=== PATIENT | male | born 1935 | race Caucasian/White ===

== ENCOUNTER 2024-08-18 18:20 | Inpatient (IN) ==
[2024-08-18 18:55] LABS: Hematocrit (blood only) 40.9 % (42.0-52.0); Hemoglobin 14.2 g/dl (14.0-18.0); Immature Granulocytes # (auto) 0.04 K/uL (0.01-0.20); Immature Granulocytes % (auto) 0.4 %; Mean Corpuscular Hemoglobin 29.3 pg (25.0-34.0); Mean Corpuscular Volume 84.5 fL (80.0-100.0); Platelet Count 381 K/uL (130-400); RDW Standard Deviation 41.4 fL (36.4-46.3); Red Blood Count 4.84 M/uL (4.70-6.10); White Blood Count 8.97 K/ul (4.8-10.8)
--- NOTE | 2024-08-18 19:02 | Emergency Department Note ---
Impression & Plan [facility] (acute kidney injury), Acute urinary retention, Acute confusion ED Provider Note HISTORY OF PRESENT ILLNESS: Patient is an 88-year-old male presenting with generalized weakness, abdominal pain and confusion. Son at bedside helps provide history. Reports that the patient lives at home with his son. Son at bedside reports that his brother who the patient lives with. Patient normally is quite active and last week was riding his lawnmower and doing his ADLs by himself. Son at bedside reports that this week the patient has been very tired and rundown and has been laying in bed most of the day. Reports he has had significant decreased oral intake. Reports that they have been having difficulties trying to coax the patient out of bed and to come down and eat anything. Reports that the patient called him today saying that he felt like he needed to go to the hospital. Patient reports he feels like he has to void but is unable to. He is complaining of pain in his right lower quadrant. No reported fevers. Son reports the patient seems more confused than normal. ROS: as above PHYSICAL EXAM: Constitutional: Patient appears in no acute distress. HENT: Head: Normocephalic and atraumatic. Eyes: EOMI, PERRL Mouth/Throat: Mucous membranes moist. Neck: Trachea midline. Neck supple. Cardiovascular: RRR, No murmurs, rubs or gallops. Intact distal pulses. Pulmonary/Chest: No respiratory distress. Breath sounds clear and equal bilaterally. No wheezes or rales. Abdominal: Abdomen soft, no rebound or guarding. RLQ TTP. Dome of bladder palpated above umbilicus Musculoskeletal: No edema, tenderness or deformity noted. Skin: Warm and dry. No rash, erythema, pallor or cyanosis Neurological: Alert to person and place, but confused on the month. CN II-XII grossly intact, moving all extremities equally and fully. MDM: - Vitals signs showed hypertension - History obtained via patient and patient's son at bedside. History as above. - Chronic conditions affecting care: HLD; HTN; DM-2 - Differential diagnoses include, but are not limited to: CVA; intracranial hemorrhage; ACS; electrolyte abnormality; dehydration; dysrhythmia; appendicitis; bowel obstruction - Order placed for continuous cardiac monitoring. At this time, monitor showed rate of 74 bpm with normal sinus rhythm, per my interpretation. - External medical records reviewed. Wellness visit note dated 12/06/2022 was reviewed. Patient was seen for his annual wellness examination. - Patient bladder scanned on arrival by nursing staff and had over 800 cc in his bladder. A straight cath was performed - EKG image interpreted by myself showed normal sinus rhythm. Rate 71 bpm. QT 384. No acute ischemic changes. - Laboratory workup interpreted by myself showed normal WBC; slight hyponatremia (Na 133); [facility] (Cr 1.50); hyperglycemia glucose (191) with normal anion gap); normal CK; normal lipase; normal lactate - UA negative for infection - CXR image reviewed by myself negative for pneumonia, per my interpretation - CT head wo contrast negative for acute pathology - CT abdomen/pelvis with IV contrast showed large heterogeneous enhancing prostate concerning for prostatitis. Also noted to have wall thickening and subtle inflammatory changes around the anus concerning for proctitis. Noted to incidentally have a 1.6 cm hypodensity in the pancreatic tail which it is recommended to get an MRI of the abdomen for further workup. - Patient continually getting up to tried to use the restroom but is unable to void. This is likely secondary to his prostatitis and BPH. A Doss catheter was inserted after he was bladder scanned for over 300 cc of urine. After insertion of the Doss catheter, he had over 800 cc out. - Patient given 1L NS in ER. - Discussion was had with caseworker protective services about patient's case and need for admission - Hospitalist. Dr. Lopez, consulted for admission at 21:50. - [facility] ASSESSMENT AND PLAN: Diagnosis: [facility]; acute confusion; acute urinary retention Plan: admit Past Med/Surg History Problem List (Updated 08/18/24 @ 21:51 by Rupa Kay MD) Acute confusion (Acute) Acute urinary retention (Acute) [facility] (acute kidney injury) (Acute) COPE (chronic obstructive pulmonary emphysema) Elevated prostate specific antigen (PSA) (Chronic) Hypercholesterolemia (Chronic) Benign hypertension (Chronic) Type 2 diabetes mellitus (Chronic) Medical History History of basal cell carcinoma (BCC) Surgical History History of cataract surgery History of hemorrhoidectomy Status post Mohs surgery Family History Father Myocardial infarction COPD (chronic obstructive pulmonary disease) CHF (congestive heart failure) Mother Alzheimer disease Denies family history of Ovarian cancer Prostate cancer Breast cancer Colorectal cancer Social History Smoking Status: Never smoker Age Started Using Tobacco: 22; Age Quit Using Tobacco: 46; Cigarettes Per Day: A COUPLE PER DAY; Do You Dip or Chew Tobacco: No; Hx Alcohol Use: No Hx Substance Use: No Preferred Language: Khmer Communication Ability: Effective Visual Impairment: No Limitations Hearing Ability: Normal Industrial 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 Required: No marital status: Current Living Situation: Spouse current occupational status: employed 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 How many Children do You have: 2 Feels Safe at Home: Yes Childhood Exposure to Second-Hand Smoke: No Diet: regular caffeine: Yes during the past year weight has: remained stable Dental Care, Regularly: Yes Physical Activity Frequency: Daily Seatbelt Use: always Sunscreen Use: Yes Do you think of yourself as: straight/heterosexual Assistive Devices: Glasses Allergies Allergies Allergy/AdvReac Type Severity Reaction Status Date / Time spironolactone Allergy Unknown HIVES Verified 08/18/24 20:48 Home Meds Previous Rx's Medication Instructions Recorded albuterol sulfate 90 mcg/actuation See Rx Instructions inhalation 07/24/22 aerosol inhaler (Ventolin HFA) .COMPLEX PRN shortness of breath or wheezing #8.5 grams acebutolol 200 mg capsule 200 mg PO BID #180 caps 05/27/24 losartan 50 mg tablet 50 mg PO DAILY #90 tabs 05/27/24 Results & Data (ED) Vital Signs Vital Signs - 24 hr 08/18/24 18:25 08/18/24 18:32 08/18/24 18:52 Temperature 36.8 C Temperature Source Oral Pulse Rate 88 74 Pulse Rhythm Regular Pulse Strength Normal Respiratory Rate 18 Respiratory Effort / Characteristics Non-Labored Spontaneous Respiratory Depth Normal Respiratory Pattern Regular Blood Pressure 156/115 H Blood Pressure Mean 128 Blood Pressure Position Sitting Pulse Oximetry 98 98 Oxygen Delivery Method Room Air Room Air Sepsis Recent Fever Within 48 Hours No Sepsis New/Unexplained Change in Mental Status No Sepsis Action Taken by Nursing No Action Required 08/18/24 20:50 Temperature Temperature Source Pulse Rate 73 Pulse Rhythm Pulse Strength Respiratory Rate 20 Respiratory Effort / Characteristics Respiratory Depth Respiratory Pattern Blood Pressure 146/107 H Blood Pressure Mean 114 Blood Pressure Position Pulse Oximetry 96 Oxygen Delivery Method Sepsis Recent Fever Within 48 Hours Sepsis New/Unexplained Change in Mental Status Sepsis Action Taken by Nursing Laboratory Data 08/18/24 18:37 08/18/24 18:37 Lab Results 08/18/24 08/18/24 Range/Units 18:37 19:00 WBC 8.97 (4.8-10.8) K/ul RBC 4.84 (4.70-6.10) M/uL Hgb 14.2 (14.0-18.0) g/dl Hct 40.9 L (42.0-52.0) % MCV 84.5 (80.0-100.0) fL MCH 29.3 (25.0-34.0) pg MCHC 34.7 (32.0-36.0) g/dL RDW Std Deviation 41.4 (36.4-46.3) fL RDW Coeff of Rosalba 13.4 (11.5-14.5) % Plt Count 381 (130-400) K/uL MPV 9.8 (9.4-12.4) fL Immature Gran % (Auto) 0.4 % Neut % (Auto) 69.0 % Lymph % (Auto) 22.3 % [place] % (Auto) 7.9 % Eos % (Auto) 0.2 % Baso % (Auto) 0.2 % Neut # (Auto) 6.18 (1.40-6.50) K/uL Lymph # (Auto) 2.00 (1.20-3.40) K/uL [place] # (Auto) 0.71 H (0.11-0.59) K/uL Eos # (Auto) 0.02 (0.00-0.50) K/uL Baso # (Auto) 0.02 (0.00-0.20) K/uL Immature Gran # (Auto) 0.04 (0.01-0.20) K/uL Sodium 133 L (136-145) mmol/L Potassium 4.7 (3.5-5.1) mmol/L Chloride 100 (98-107) mmol/L Carbon Dioxide 25 (21-32) mmol/L Anion Gap 8 (3-11) BUN 21 (6-23) mg/dl Creatinine 1.50 H (0.6-1.4) mg/dl Est Cr Clr Drug Dosing 35.8 ml/min eGFR 44.78 BUN/Creatinine Ratio 14.0 (10-20) Glucose 191 H (70-99(Fasting)) mg/dl Lactate 1.4 (0.4-2.0) mmol/L Calcium 10.0 (8.6-10.3) mg/dl Total Bilirubin 0.8 (0.2-1.0) mg/dl AST 25 (13-39) U/L ALT 35 (7-52) U/L Alkaline Phosphatase 106 H (34-104) U/L Total Creatine Kinase 32 (30-223) U/L Total Protein 7.3 (6.0-8.3) gm/dl Albumin 3.3 L (3.4-5.0) gm/dl Globulin 4.0 (2.5-4.0) gm/dl Albumin/Globulin Ratio 0.8 L (0.9-2) Lipase 65 (11-82) U/L Urine Color Yellow Urine Appearance Clear (Clear) Urine pH 6.5 (4.5-7.5) Ur Specific [place] 1.010 (1.000-1.030) Urine Protein Negative (Negative) Urine Glucose (UA) Negative (Negative) Urine Ketones Negative (Negative) Urine Blood Negative (Negative) Urine Nitrite Negative (Negative) Urine Bilirubin Negative (Negative) Urine Urobilinogen Negative (Negative) Ur Leukocyte Esterase Negative (Negative) Urine Comment Administered Medications Discontinued Medications Sodium Chloride (Nss) 1,000 mls @ 999 mls/hr IV .Q1H1M ONE Stop: 08/18/24 20:15 Last Infusion: 08/18/24 20:36 Dose: Infused Documented By: Admin: 08/18/24 19:35 Dose: 999 mls/hr Documented By: BALJIT Ioversol (Optiray 320 100ml) 93 ml IV ONCE ONE Stop: 08/18/24 19:50 Last Admin: 08/18/24 19:50 Dose: 93 ml Documented By: GES Imaging Data Radiologist's Impression: Abdomen/Pelvis CT 08/18/24 18:50 Exam(s): CT ABDOMEN + PELVIS With Contrast EXAM: CT Abdomen and Pelvis With Intravenous Contrast CLINICAL HISTORY: Reason for exam: RLQ abd pain; confusion. TECHNIQUE: Axial computed tomography images of the abdomen and pelvis with intravenous contrast. CTDI is 17.84 mGy and DLP is 950.89 mGy-cm. Automated exposure control was utilized for the study. A dose lowering technique was utilized adhering to the principles of ALARA. CONTRAST: Contrast must be dictated COMPARISON: No relevant prior studies available. FINDINGS: Lung bases: Unremarkable. No mass. No consolidation. ABDOMEN: Liver: Hepatomegaly. No mass. Gallbladder and bile ducts: calcification about the gallbladder wall. No ductal dilation. Pancreas: 1.6 cm cyst within the pancreatic tail. No ductal dilation. Spleen: Unremarkable. No splenomegaly. Adrenals: Unremarkable. No mass. Kidneys and ureters: Nonobstructing left intrarenal calculus. 0.8 cm left renal hypodensity likely representing a cyst. Stomach and bowel: Subtle hyperemia and wall thickening involving the duodenum. Wall thickening and inflammatory change about the anus. No obstruction. PELVIS: Appendix: Normal-appearing appendix. Bladder: Moderately distended urinary bladder. Reproductive: The prostate is markedly enlarged and demonstrates heterogeneous enhancement. ABDOMEN and PELVIS: Intraperitoneal space: Unremarkable. No free air. No significant fluid collection. Bones/joints: No acute fracture. No dislocation. Multilevel degenerative changes of the lower thoracic and lumbar spine Soft tissues: Unremarkable. Vasculature: Unremarkable. No abdominal aortic aneurysm. Lymph nodes: Unremarkable. No enlarged lymph nodes. IMPRESSION: Enlarged heterogeneously enhancing prostate. Findings may represent prostatitis Wall thickening and subtle inflammatory changes about the anus may represent proctitis in the appropriate clinical setting Hyperemia and inflammatory changes about the duodenum may represent enteritis 1.6 cm hypodensity within the pancreatic tail. While this may represent a cyst, nonemergent MRI of the abdomen; pancreatic mass protocol recommended for further evaluation. Hepatomegaly Electronically signed by: Edgar Triana MD 08/18/24 20:[address] 08/18/24 18:50 Exam(s): CT HEAD Without Contrast EXAM: CT Head Without Intravenous Contrast CLINICAL HISTORY: Reason for exam: confusion. TECHNIQUE: Axial computed tomography images of the head/brain without intravenous contrast. CTDI is 35.37 mGy and DLP is 624.41 mGy-cm. Automated exposure control was utilized for the study. A dose lowering technique was utilized adhering to the principles of ALARA. COMPARISON: No relevant prior studies available. FINDINGS: Brain: Moderate ischemic microangiopathy. Age-appropriate cerebral volume loss. No hemorrhage. Ventricles: Unremarkable. No ventriculomegaly. Bones/joints: Unremarkable. No acute fracture. Soft tissues: Unremarkable. Sinuses: Right maxillary sinus inflammatory change. Mastoid air cells: Unremarkable as visualized. No mastoid effusion. IMPRESSION: No acute findings in the head/brain. Electronically signed by: Edgar Triana MD 08/18/24 20:48 PM Chest X-Ray 08/18/24 18:53 Chest radiograph, one view History: Confusion Comparison: None Findings: Single AP view of the chest performed. No focal consolidation or pleural effusion. No pneumothorax. The cardiomediastinal silhouette is within normal limits. Normal pulmonary vascularity. No evidence for lymphadenopathy. No visualized bony or soft tissue abnormality. Impression: Normal chest radiograph Electronically signed by Ayden Malagon 08-18-2024 7:50 PM Discharge Plan Visit Data Chief Complaint: Abdominal Pain ED Provider: Rupa Kay Discharge Problem: [facility] (acute kidney injury), Acute urinary retention, Acute confusion Condition: Fair Forms Stand Alone Forms: [employer] Prescriptions Prescriptions: No Action albuterol sulfate [Ventolin HFA] 90 mcg/actuation HFA aerosol inhaler See Rx Instructions inhalation .COMPLEX PRN (Reason: shortness of breath or wheezing) Qty: 8.5 0RF Rx Instructions: 1-2 INH 4-6 PRN; acebutolol 200 mg capsule 200 mg PO BID Qty: 180 0RF losartan 50 mg tablet 50 mg PO DAILY Qty: 90 0RF Referrals Referrals: Nolan Rubi III, CRNP [Primary Care Provider] -
[2024-08-18 19:13] LABS: Alanine Aminotransferase 35.0 U/L (7-52); Albumin Globulin Ratio 0.8 (0.9-2); Alkaline Phosphatase 106.0 U/L (34-104); Anion Gap 8.0 (3-11); Bilirubin,Total 0.8 mg/dl (0.2-1.0); Blood Urea Nitrogen 21.0 mg/dl (6-23); Calcium 10.0 mg/dl (8.6-10.3); Carbon Dioxide 25.0 mmol/L (21-32); Chloride 100.0 mmol/L (98-107); Creatine Kinase 32.0 U/L (30-223); Creatinine Clr Calc Pharmacy 35.8 ml/min; Globulin 4.0 gm/dl (2.5-4.0); Glucose 191.0 mg/dl (70-99(Fasting)); Lipase 65.0 U/L (11-82); Potassium 4.7 mmol/L (3.5-5.1); Sodium 133.0 mmol/L (136-145); Total Protein 7.3 gm/dl (6.0-8.3)
[2024-08-18 19:13] LABS: Appearance Urine Clear (Clear); Glucose Urine UA Negative (Negative)
[2024-08-18] MEDS: SODIUM CHLORIDE 0.9% 1,000 ML IV ONE (19:35)
[2024-08-18] MEDS: OPTIRAY 320 100ml IV ONE (19:50)
--- NOTE | 2024-08-18 19:53 | XRay Report ---
Chest radiograph, one view History: Confusion Comparison: None Findings: Single AP view of the chest performed. No focal consolidation or pleural effusion. No pneumothorax. The cardiomediastinal silhouette is within normal limits. Normal pulmonary vascularity. No evidence for lymphadenopathy. No visualized bony or soft tissue abnormality. Impression: Normal chest radiograph Electronically signed by Ayden Malagon 08-18-2024 7:50 PM
--- NOTE | 2024-08-18 20:48 | CT Scan Report ---
Exam(s): CT ABDOMEN + PELVIS With Contrast EXAM: CT Abdomen and Pelvis With Intravenous Contrast CLINICAL HISTORY: Reason for exam: RLQ abd pain; confusion. TECHNIQUE: Axial computed tomography images of the abdomen and pelvis with intravenous contrast. CTDI is 17.84 mGy and DLP is 950.89 mGy-cm. Automated exposure control was utilized for the study. A dose lowering technique was utilized adhering to the principles of ALARA. CONTRAST: Contrast must be dictated COMPARISON: No relevant prior studies available. FINDINGS: Lung bases: Unremarkable. No mass. No consolidation. ABDOMEN: Liver: Hepatomegaly. No mass. Gallbladder and bile ducts: calcification about the gallbladder wall. No ductal dilation. Pancreas: 1.6 cm cyst within the pancreatic tail. No ductal dilation. Spleen: Unremarkable. No splenomegaly. Adrenals: Unremarkable. No mass. Kidneys and ureters: Nonobstructing left intrarenal calculus. 0.8 cm left renal hypodensity likely representing a cyst. Stomach and bowel: Subtle hyperemia and wall thickening involving the duodenum. Wall thickening and inflammatory change about the anus. No obstruction. PELVIS: Appendix: Normal-appearing appendix. Bladder: Moderately distended urinary bladder. Reproductive: The prostate is markedly enlarged and demonstrates heterogeneous enhancement. ABDOMEN and PELVIS: Intraperitoneal space: Unremarkable. No free air. No significant fluid collection. Bones/joints: No acute fracture. No dislocation. Multilevel degenerative changes of the lower thoracic and lumbar spine Soft tissues: Unremarkable. Vasculature: Unremarkable. No abdominal aortic aneurysm. Lymph nodes: Unremarkable. No enlarged lymph nodes. IMPRESSION: Enlarged heterogeneously enhancing prostate. Findings may represent prostatitis Wall thickening and subtle inflammatory changes about the anus may represent proctitis in the appropriate clinical setting Hyperemia and inflammatory changes about the duodenum may represent enteritis 1.6 cm hypodensity within the pancreatic tail. While this may represent a cyst, nonemergent MRI of the abdomen; pancreatic mass protocol recommended for further evaluation. Hepatomegaly Electronically signed by: Edgar Triana MD 08/18/24 20:47 PM
--- NOTE | 2024-08-18 20:49 | CT Scan Report ---
Exam(s): CT HEAD Without Contrast EXAM: CT Head Without Intravenous Contrast CLINICAL HISTORY: Reason for exam: confusion. TECHNIQUE: Axial computed tomography images of the head/brain without intravenous contrast. CTDI is 35.37 mGy and DLP is 624.41 mGy-cm. Automated exposure control was utilized for the study. A dose lowering technique was utilized adhering to the principles of ALARA. COMPARISON: No relevant prior studies available. FINDINGS: Brain: Moderate ischemic microangiopathy. Age-appropriate cerebral volume loss. No hemorrhage. Ventricles: Unremarkable. No ventriculomegaly. Bones/joints: Unremarkable. No acute fracture. Soft tissues: Unremarkable. Sinuses: Right maxillary sinus inflammatory change. Mastoid air cells: Unremarkable as visualized. No mastoid effusion. IMPRESSION: No acute findings in the head/brain. Electronically signed by: Edgar Triana MD 08/18/24 20:48 PM
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
[2024-08-19] MEDS ORDERED: ALBUTEROL HFA 8 GM INHALER INH PRN (00:31)
[2024-08-19] MEDS ORDERED: ONDANSETRON INJ 2 MG/ML 2 ML VIAL IV PRN (00:31)
[2024-08-19] MEDS: MELATONIN 3 MG TAB PO PRN (00:37)
[2024-08-19] MEDS: ACETAMINOPHEN 325 MG TAB PO PRN (00:37)
[2024-08-19] MEDS: LACTATED RINGER'S 1,000 ML IV SCH (00:38)
[2024-08-19 00:52] LABS: Thyroid Stimulating Hormone 1.262 uIu/ml (0.300-4.500)
[2024-08-19 07:32] VITALS: PULSE 70; RESP 16; O2SAT 95
[2024-08-19 07:48] LABS: Hematocrit (blood only) 35.4 % (42.0-52.0); Hemoglobin 12.0 g/dl (14.0-18.0); Mean Corpuscular Hemoglobin 29.1 pg (25.0-34.0); Mean Corpuscular Volume 85.9 fL (80.0-100.0); Platelet Count 324 K/uL (130-400); RDW Standard Deviation 43.2 fL (36.4-46.3); Red Blood Count 4.12 M/uL (4.70-6.10); White Blood Count 7.32 K/ul (4.8-10.8)
[2024-08-19 08:10] LABS: Anion Gap 5.0 (3-11); Blood Urea Nitrogen 17.0 mg/dl (6-23); Calcium 8.7 mg/dl (8.6-10.3); Carbon Dioxide 27.0 mmol/L (21-32); Chloride 106.0 mmol/L (98-107); Creatinine Clr Calc Pharmacy 44.7 ml/min; Glucose 151.0 mg/dl (70-99(Fasting)); Potassium 4.3 mmol/L (3.5-5.1); Sodium 138.0 mmol/L (136-145)
[2024-08-19] MEDS: ACEBUTOLOL HCL 200 MG CAPSULE PO SCH (08:46)
[2024-08-19] MEDS: LOSARTAN POTASSIUM 50 MG TAB PO SCH (08:46)
[2024-08-19 14:45] VITALS: BP 130/77; TEMP 98.1
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
--- NOTE | 2024-08-19 17:33 | Electrocardiogram Report ---
Test Reason : Blood Pressure : */* mmHG Vent. Rate : 71 BPM Atrial Rate : 71 BPM P-R Int : 192 ms QRS Dur : 92 ms QT Int : 384 ms P-R-T Axes : 5 -2 24 degrees QTcB Int : 417 ms Normal sinus rhythm Normal ECG Confirmed by Ayden See ([id number]) on 08/19/2024 5:32:44 PM Referred By: REFERRED SELF Confirmed By: Ayden See
== END 2024-08-19 18:21 | disposition home or self-care (01) | DRG 682 ==
LOC: ED 18:20 → SUATTDRO 22:45 → 3E 22:45